=== PATIENT | male | born 1975 | race American Indian/Alaskan Native ===

== ENCOUNTER 2021-01-24 11:29 | Emergency (ER) | payer MEDICAID, OTHER ==
[2021-01-24] MEDS ORDERED: Iopamidol 612 MG/ML 100 ML Bottle IVPUSH ONE (11:51)
[2021-01-24] MEDS ORDERED: Sodium Chloride 0.9% 1,000 ML IV ONE (11:53)
--- NOTE | 2021-01-24 12:06 | EDM.PDOC ---
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 Denied loss of consciousnes. some discomfort yesterday but this am pain worse 7-8/10. Stiffness and discomfort to neck, right rib and flank pain, increased pain with deep breathig. pain to left griffith, lower leg, left knee and left elbow. Generalized Pain Score (Numeric/FACES): 8 - Related Data Allergies Allergy/AdvReac Type Severity Reaction Status Date / Time No Known Allergies Allergy Verified 01/24/21 11:39 Home Meds: Home Meds . [Unable to Verify Home Med List] 01/24/21 [History] Past Medical History HEENT History: Reports: None Cardiovascular History: Reports: High Cholesterol, Hypertension Respiratory History: Reports: None Genitourinary History: Reports: None Musculoskeletal History: Reports: Other (See Below) Other Musculoskeletal History: fractured left thumb Neurological History: Reports: None Psychiatric History: Reports: None Endocrine/Metabolic History: Reports: Hypothyroidism Hematologic History: Reports: None Immunologic History: Reports: None Oncologic (Cancer) History: Reports: None Dermatologic History: Reports: None - Infectious Disease History Infectious Disease History: Reports: None - Past Surgical History Head Surgeries/Procedures: Reports: None GI Surgical History: Reports: Hernia, Inguinal Social & Family History - Family History Family Medical History: No Pertinent Family History - Tobacco Use Tobacco Use Status *Q: Current Every Day Tobacco User Years of Tobacco use: 27 Packs/Tins Daily: 1 - Caffeine Use Caffeine Use: Reports: Coffee - Alcohol Use Days Per Week of Alcohol Use: 1 Number of Drinks Per Day: 36 Total Drinks Per Week: 36 - Recreational Drug Use Recreational Drug Use: No ED ROS GENERAL - Review of Systems Review Of Systems: Comprehensive ROS is negative, except as noted in HPI. ED EXAM, GENERAL - Physical Exam Exam: See Below Exam Limited By: No Limitations General Appearance: Alert, Mild Distress Eye Exam: Bilateral Eye: EOMI, PERRL Ears: Normal External Exam Nose: Normal Inspection Throat/Mouth: Normal Inspection, Normal Voice Head: Atraumatic, Normocephalic Neck: Tender Lateral, Tender Midline (mild) Respiratory/Chest: No Respiratory Distress, Lungs Clear, Normal Breath Sounds, Decreased Breath Sounds, Crackles, Rales, Wheezing (right lower with expiration, improves with deep breathing), Other (right lower lateral chest tender with palpation). No: Pleural Rub Cardiovascular: Normal Peripheral Pulses, Regular Rate, Rhythm GI/Abdominal: Normal Bowel Sounds, Soft Back Exam: Paraspinal Tenderness (right lower thoracic.) Course - Vital Signs Last Recorded V/S: Last Vital Signs Temp 98.1 F 01/24/21 11:38 Pulse 87 01/24/21 11:38 Resp 18 01/24/21 11:38 BP 153/95 H 01/24/21 11:38 Pulse Ox 96 01/24/21 11:38 - Orders/Labs/Meds Orders: Active Orders 24 hr Category Date Time Status UA RFX MARCIE AND CULT IF INDIC [URIN] Stat Lab 01/24/21 11:42 Ordered Labs: Laboratory Tests 01/24/21 01/24/21 Range/Units 11:50 11:50 WBC 6.5 (5.0-10.0) 10^3/uL RBC 4.96 (4.6-6.2) 10^6/uL Hgb 15.3 (14.0-18.0) g/dL Hct 46.0 (40.0-54.0) % MCV 92.7 (80-100) fL MCH 30.8 (27.0-34.0) pg MCHC 33.3 (33.0-35.0) g/dL Plt Count 260 (150-450) 10^3/uL Neut % (Auto) 59.8 (42.2-75.2) % Lymph % (Auto) 33.5 (20.5-50.1) % Bryan % (Auto) 5.9 (2-8) % Eos % (Auto) 0.6 L (1.0-3.0) % Baso % (Auto) 0.2 (0.0-1.0) % Sodium 141 (136-145) mmol/L Potassium 4.1 (3.5-5.1) mmol/L Chloride 106 (98-107) mmol/L Carbon Dioxide 28 (21-32) mmol/L Anion Gap 11.1 (7-13) mEq/L BUN 10 (7-18) mg/dL Creatinine 1.12 (0.70-1.30) mg/dL Est Cr Clr Drug Dosing 80.58 mL/min Estimated GFR (MDRD) > 60 BUN/Creatinine Ratio 8.9 (No establ ref range) Glucose 103 H (70-99) mg/dL Calcium 7.9 L (8.5-10.1) mg/dL Total Bilirubin 0.5 (0.2-1.0) mg/dL AST 21 (15-37) U/L ALT 32 (16-63) U/L Alkaline Phosphatase 87 (46-116) U/L Total Protein 7.5 (6.4-8.2) g/dL Albumin 3.9 (3.4-5.0) g/dL Globulin 3.6 Albumin/Globulin Ratio 1.1 Meds: Medications Discontinued Medications Generic Name Dose Route Start Last Admin Trade Name Freq PRN Reason Stop Dose Admin Sodium Chloride 1,000 mls @ 999 mls/hr 01/24/21 11:53 01/24/21 12:05 Normal Saline IV 01/24/21 12:53 999 mls/hr .BOLUS ONE Administration Ibuprofen 600 mg 01/24/21 13:21 Ibuprofen 600 Mg Tab PO 01/24/21 13:22 ONETIME ONE Iopamidol 100 ml 01/24/21 11:51 01/24/21 12:15 Iopamidol 612 Mg/Ml 100 Ml Bottle IVPUSH 01/24/21 11:52 100 ml ONETIME ONE Administration - Re-Assessments/Exams Free Text/Narrative Re-Assessment/Exam: 01/24/21 13:31 Findings discussed with patient. RT here for incentive spirometer. Departure - Departure Time of Disposition: 13:23 Disposition: Home, Self-Care 01 Condition: Good Clinical Impression: Muscle strain, Abrasion, multiple sites Contusion of rib on right side Qualifiers: Encounter type: initial encounter Qualified Code(s): S20.211A - Contusion of right front wall of thorax, initial encounter Fall Qualifiers: Encounter type: initial encounter Qualified Code(s): W19.XXXA - Unspecified fall, initial encounter Knee pain, left Qualifiers: Chronicity: acute Qualified Code(s): M25.562 - Pain in left knee - Discharge Information *PRESCRIPTION DRUG MONITORING PROGRAM REVIEWED*: No *COPY OF PRESCRIPTION DRUG MONITORING REPORT IN PATIENT RICK: No Instructions: Muscle Strain, [id number], Joint Pain, [id number], Rib Contusion Forms: ED Department Discharge Additional Instructions: deep breathing exercises with incentive spirometer every 2 hours while awake cleanse wounds twice daily with soap and water over the counter antibiotic ointment twice daily to wounds until healed follow up if redness drainage from scrapes ibuprofen 600mg every 6 hours as needed for discomfort, may alternate with tylenol 650mg every 4-6 hours flexeril 10mg one every 8 hours as needed for muscle spasm clinic recheck nest week, follow up sooner fever chills or difficulty breathing Sepsis Event Note (ED) - Evaluation Sepsis Screening Result: No Definite Risk - Focused Exam Vital Signs: Vital Signs Temp Pulse Resp BP Pulse Ox 01/24/21 11:38 98.1 F 87 18 153/95 H 96 - My Orders Last 24 Hours: My Active Orders 01/24/21 11:42 UA RFX MARCIE AND CULT IF INDIC [URIN] Stat - Assessment/Plan Last 24 Hours: My Active Orders 01/24/21 11:42 UA RFX MARCIE AND CULT IF INDIC [URIN] Stat
[2021-01-24 12:13] LABS: ANION GAP 11.1 mEq/L (7-13); CHLORIDE,CL 106 mmol/L (98-107); SODIUM,NA 141 mmol/L (136-145)
--- NOTE | 2021-01-24 12:56 | CT ---
PROCEDURE INFORMATION: Exam: CT Cervical Spine Without Contrast Exam date and time: 01/24/2021 12:19 PM Age: 45 years old Clinical indication: Injury or trauma; Fall; Injury date: 01/23/2021; Additional info: Fell 7 feet from scafold, pain, bruising, pain to neck TECHNIQUE: Imaging protocol: Computed tomography images of the cervical spine without contrast. Radiation optimization: All CT scans at this facility use at least one of these dose optimization techniques: automated exposure control; mA and/or kV adjustment per patient size (includes targeted exams where dose is matched to clinical indication); or iterative reconstruction. COMPARISON: No relevant prior studies available. FINDINGS: Vertebrae: No acute fracture. Normal alignment. C2-C3: No significant disc protrusion. No severe spinal canal stenosis. No significant neural foraminal narrowing. C3-C4: No significant disc protrusion. No severe spinal canal stenosis. No significant neural foraminal narrowing. C4-C5: No significant disc protrusion. No severe spinal canal stenosis. No significant neural foraminal narrowing. C5-C6: No significant disc protrusion. No severe spinal canal stenosis. No significant neural foraminal narrowing. C6-C7: No significant disc protrusion. No severe spinal canal stenosis. No significant neural foraminal narrowing. C7-T1: No significant disc protrusion. No severe spinal canal stenosis. No significant neural foraminal narrowing. Soft tissues: Unremarkable. Lungs: Lung apices are normal. IMPRESSION: No acute fracture or subluxation within the cervical spine.
--- NOTE | 2021-01-24 12:59 | CT ---
PROCEDURE INFORMATION: Exam: CT Chest With Contrast; Diagnostic Exam date and time: 01/24/2021 12:19 PM Age: 45 years old Clinical indication: Injury or trauma; Fall; Injury date: 01/23/2021; Additional info: Fell 7 feet from scafold, pain, bruising, pain to right side lower ribs TECHNIQUE: Imaging protocol: Diagnostic computed tomography of the chest with contrast. Radiation optimization: All CT scans at this facility use at least one of these dose optimization techniques: automated exposure control; mA and/or kV adjustment per patient size (includes targeted exams where dose is matched to clinical indication); or iterative reconstruction. Contrast material: ISOVUE 300; Contrast volume: 100 ml; Contrast route: INTRAVENOUS (IV); COMPARISON: No relevant prior studies available. FINDINGS: Lungs: Minimal linear markings within the lingula likely atelectasis. No pulmonary contusion identified. There is no pulmonary edema. Pleural spaces: Unremarkable. No pneumothorax. No pleural effusion. Heart: Unremarkable. No cardiomegaly. No pericardial effusion. Aorta: Unremarkable. No aortic aneurysm. Lymph nodes: Unremarkable. No enlarged lymph nodes. Bones/joints: Unremarkable. No acute fracture. Soft tissues: Unremarkable. IMPRESSION: Minimal atelectasis in the right middle lobe. No acute intrathoracic injury identified. PROCEDURE INFORMATION: Exam: CT Abdomen And Pelvis With Contrast Exam date and time: 01/24/2021 12:19 PM Age: 45 years old Clinical indication: Injury or trauma; Fall; Injury date: 01/23/2021; Additional info: Fell 7 feet from scafold, pain, bruising, pain to right side lower ribs TECHNIQUE: Imaging protocol: Computed tomography of the abdomen and pelvis with contrast. Radiation optimization: All CT scans at this facility use at least one of these dose optimization techniques: automated exposure control; mA and/or kV adjustment per patient size (includes targeted exams where dose is matched to clinical indication); or iterative reconstruction. Contrast material: ISOVUE 300; Contrast volume: 100 ml; Contrast route: INTRAVENOUS (IV); COMPARISON: No relevant prior studies available. FINDINGS: Liver: Normal. No mass. Gallbladder and bile ducts: Normal. No calcified stones. No ductal dilation. Pancreas: Normal. No ductal dilation. Spleen: Normal. No splenomegaly. Adrenal glands: Normal. No mass. Kidneys and ureters: Normal. No hydronephrosis. Stomach and bowel: Unremarkable. No obstruction. No mucosal thickening. Appendix: No evidence of appendicitis. Intraperitoneal space: Unremarkable. No free air. No significant fluid collection. Vasculature: Unremarkable. No abdominal aortic aneurysm. Lymph nodes: Unremarkable. No enlarged lymph nodes. Urinary bladder: Unremarkable as visualized. Reproductive: Unremarkable as visualized. Bones/joints: Unremarkable. No acute fracture. Soft tissues: Unremarkable. IMPRESSION: No acute intra-abdominal or intrapelvic injury identified. No free fluid present.
--- NOTE | 2021-01-24 13:02 | CT ---
PROCEDURE INFORMATION: Exam: CT Thoracic Spine Without Contrast Exam date and time: 01/24/2021 12:19 PM Age: 45 years old Clinical indication: Injury or trauma; Fall; Blunt trauma (contusions or hematomas); Injury date: 01/23/2021; Additional info: Fell 7 feet from scafold, pain, bruising TECHNIQUE: Imaging protocol: Computed tomography images of the thoracic spine without contrast. Radiation optimization: All CT scans at this facility use at least one of these dose optimization techniques: automated exposure control; mA and/or kV adjustment per patient size (includes targeted exams where dose is matched to clinical indication); or iterative reconstruction. COMPARISON: No relevant prior studies available. FINDINGS: Vertebrae: Thoracic vertebral body height and alignment are well maintained. There is mild disc space narrowing throughout the thoracic spine with small osteophytes at T4-5 and T5-6. Facet joints remain in anatomic alignment. Mild facet degenerative changes are present. T1-T2: No significant disc protrusion. No severe spinal canal stenosis. No significant neural foraminal narrowing. T2-T3: No significant disc protrusion. No severe spinal canal stenosis. No significant neural foraminal narrowing. T3-T4: No significant disc protrusion. No severe spinal canal stenosis. No significant neural foraminal narrowing. T4-T5: No significant disc protrusion. No severe spinal canal stenosis. No significant neural foraminal narrowing. T5-T6: No significant disc protrusion. No severe spinal canal stenosis. No significant neural foraminal narrowing. T6-T7: No significant disc protrusion. No severe spinal canal stenosis. No significant neural foraminal narrowing. T7-T8: No significant disc protrusion. No severe spinal canal stenosis. No significant neural foraminal narrowing. T8-T9: No significant disc protrusion. No severe spinal canal stenosis. No significant neural foraminal narrowing. T9-T10: No significant disc protrusion. No severe spinal canal stenosis. No significant neural foraminal narrowing. T10-T11: No significant disc protrusion. No severe spinal canal stenosis. No significant neural foraminal narrowing. T11-T12: No significant disc protrusion. No severe spinal canal stenosis. No significant neural foraminal narrowing. T12-L1: No significant disc protrusion. No severe spinal canal stenosis. No significant neural foraminal narrowing. IMPRESSION: 1. Mild degenerative disc and degenerative joint disease. No acute fracture or subluxation within the thoracic spine.
--- NOTE | 2021-01-24 13:03 | CR ---
PROCEDURE INFORMATION: Exam: XR Left Elbow Exam date and time: 01/24/2021 12:35 PM Age: 45 years old Clinical indication: Injury or trauma; Fall; Wound; Elbow; Left; Injury date: 01/23/2021; Additional info: Fell 7 feet from scafold, pain, bruising TECHNIQUE: Imaging protocol: XR Left elbow. Views: 3 or more views. COMPARISON: No relevant prior studies available. FINDINGS: Bones/joints: Multiple views of the left elbow demonstrate mild degenerative changes are present within the joint spaces. No fracture or effusion identified. Bone mineral density is normal. Soft tissues: Normal. IMPRESSION: 1. Mild degenerative change. No acute osseous injury present.
--- NOTE | 2021-01-24 13:04 | CR ---
PROCEDURE INFORMATION: Exam: XR Left Knee Exam date and time: 01/24/2021 12:41 PM Age: 45 years old Clinical indication: Injury or trauma; Fall; Swelling (edema); Knee; Left; Injury date: 01/23/21; Additional info: Pain TECHNIQUE: Imaging protocol: XR Left knee. Views: 1 or 2 views. COMPARISON: No relevant prior studies available. FINDINGS: Bones/joints: Multiple views of the left knee demonstrate mild to moderate grade degenerative change with osteophyte formation arising from the tibial spines and femoral condyles near the intercondylar notch. Mild patellofemoral degenerative changes also present with patellar osteophytes. No fracture or effusion identified. Bone mineral density is normal. Soft tissues: Normal. IMPRESSION: [id number] grade degenerative osteoarthritis. No acute osseous abnormality is identified.
--- NOTE | 2021-01-24 13:05 | CR ---
PROCEDURE INFORMATION: Exam: XR Left Tibia and Fibula Exam date and time: 01/24/2021 12:42 PM Age: 45 years old Clinical indication: Injury or trauma; Fall; Wound; Foreign body involvement not specified; Injury date: 01/23/21; Injury details: Anterior scrape lower leg left; Additional info: Fell 7 feet from scafold, pain, bruising TECHNIQUE: Imaging protocol: XR Left tibia and fibula. Views: 2 views. COMPARISON: No relevant prior studies available. FINDINGS: Bones/joints: Multiple views of the left tibia and fibula demonstrate no evidence for fracture. Mild to moderate grade degenerative changes are noted within the knee joint with mild degenerative change within the ankle joint. Bone mineral density is normal. Soft tissues: Normal. IMPRESSION: No fracture or foreign body identified.
[2021-01-24] MEDS ORDERED: Ibuprofen 600 MG Tab PO ONE (13:21)
== END 2021-01-24 13:32 | disposition home or self-care (01) ==
LOC: DL.ED 11:29
DX: S16.1XXA Strain of muscle, fascia and tendon at neck level, initial encounter (principal); S29.012A Strain of muscle and tendon of back wall of thorax, initial encounter; S20.211A Contusion of right front wall of thorax, initial encounter; M25.562 Pain in left knee; I10 Essential (primary) hypertension; Z72.0 Tobacco use; W17.89XA Other fall from one level to another, initial encounter
CPT/HCPCS: 36415; 71260; 72125; 72128; 73080-LT; 73560-LT; 73590-LT; 74177; 80053; 85025; 94010; 99284; 99284-25; A9270-GY; J7030; Q9967

== ENCOUNTER 2021-11-10 11:29 | Emergency (ER) | payer BC, MEDICAID | END 2021-11-10 15:04 | disposition home or self-care (01) | LOC: DL.ED 11:29 | DX: S06.0X9A Concussion with loss of consciousness of unspecified duration, initial encounter (principal); M54.2 Cervicalgia; I10 Essential (primary) hypertension; Z72.0 Tobacco use; W00.0XXA Fall on same level due to ice and snow, initial encounter | CPT/HCPCS: 70450; 72125; 99284; 99284-25 ==

== ENCOUNTER 2022-01-07 21:11 | Emergency (ER) | payer MEDICAID ==
[2022-01-07] MEDS ORDERED: Lidocaine 2% Viscous Solution 15 ML UD PO ONE (21:12)
[2022-01-07] MEDS ORDERED: Clindamycin HCl 150 MG Cap PO ONE ×2 (21:12→21:53)
[2022-01-07] MEDS ORDERED: Clindamycin HCl 150 MG Cap ONE (22:08)
[2022-01-07] MEDS ORDERED: Lidocaine 2% Viscous Solution 15 ML UD ONE (22:08)
== END 2022-01-07 22:15 | disposition home or self-care (01) ==
LOC: DL.ED 21:11
DX: K04.7 Periapical abscess without sinus (principal); I10 Essential (primary) hypertension; Z72.0 Tobacco use
CPT/HCPCS: 99283; A9270-GY

== ENCOUNTER 2022-02-17 12:07 | Emergency (ER) | payer MEDICAID ==
[2022-02-17] MEDS ORDERED: Sodium Chloride 0.9% 1,000 ML IV ONE ×2 (12:37→13:28)
[2022-02-17 13:18] LABS: ANION GAP 13.9 mEq/L (7-13); CHLORIDE,CL 99 mmol/L (98-107); SODIUM,NA 136 mmol/L (136-145)
[2022-02-17 13:55] LABS: AMPHETAMINES,URINE NEGATIVE (NEGATIVE); BARBITURATES,URINE NEGATIVE (NEGATIVE); BENZODIAZEPINE,URINE NEGATIVE (NEGATIVE); MDMA (ECSTASY), URINE NEGATIVE (NEGATIVE); METHADONE,URINE NEGATIVE (NEGATIVE); METHAMPHETAMINES,URINE NEGATIVE (NEGATIVE); OPIATES,URINE NEGATIVE (NEGATIVE); OXYCODONE,URINE NEGATIVE (NEGATIVE); PHENCYCLIDINE,URINE NEGATIVE (NEGATIVE); TCA,URINE POSITIVE (NEGATIVE)
== END 2022-02-17 15:17 | disposition home or self-care (01) ==
LOC: DL.ED 12:07
DX: N17.9 Acute kidney failure, unspecified (principal); E86.0 Dehydration; R25.2 Cramp and spasm; R94.6 Abnormal results of thyroid function studies; E78.00 Pure hypercholesterolemia, unspecified; E03.9 Hypothyroidism, unspecified; I10 Essential (primary) hypertension; Z79.899 Other long term (current) drug therapy
CPT/HCPCS: 36415; 80053; 80305-QW; 80307; 81001; 82550; 83605; 83735; 84100; 84439; 84443; 85025; 86140; 96360; 96361; 99284; 99284-25; J7030

== ENCOUNTER 2023-02-03 06:50 | Day surgery (SDC) | payer MEDICAID ==
[~2023-02-03 06:50] MED LIST: Dextrose 5%-0.45% NaCl 1,000 ML IV SCH; Midazolam 1 MG/ML 2 ML SDV ONE; Sodium Chloride 0.9% 10 ML Syringe FLUSH PRN; Sodium Chloride 0.9% 10 ML Syringe FLUSH SCH; fentaNYL 100 MCG/2 ML SDV ONE
[2023-02-03] MEDS ORDERED: fentaNYL 100 MCG/2 ML SDV IV ONE ×5 (06:51→08:28)
[2023-02-03] MEDS ORDERED: Midazolam 1 MG/ML 2 ML SDV IV ONE ×7 (06:51→08:25)
== END 2023-02-03 10:15 | disposition home or self-care (01) ==
LOC: DL.ENDO 06:50
PROVIDERS: ATTEND Internal Medicine Gastroenterology
DX: K57.30 Diverticulosis of large intestine without perforation or abscess without bleeding (principal); K62.5 Hemorrhage of anus and rectum; F12.90 Cannabis use, unspecified, uncomplicated; E66.09 Other obesity due to excess calories; E89.0 Postprocedural hypothyroidism; Z68.26 Body mass index [BMI] 26.0-26.9, adult; R94.5 Abnormal results of liver function studies; Z87.891 Personal history of nicotine dependence
CPT/HCPCS: 45378; J2250; J3010; J7042

== ENCOUNTER 2025-01-08 19:47 | Emergency (ER) | payer BC, MEDICAID, OTHER ==
[2025-01-08] MEDS: Ketorolac 30 MG/ML SDV IM ONE (20:10)
== END 2025-01-08 20:47 | disposition home or self-care (01) ==
LOC: DL.ED 19:47
DX: S29.011A Strain of muscle and tendon of front wall of thorax, initial encounter (principal); I10 Essential (primary) hypertension; E66.9 Obesity, unspecified; E03.9 Hypothyroidism, unspecified; Z79.890 Hormone replacement therapy; X50.0XXA Overexertion from strenuous movement or load, initial encounter
CPT/HCPCS: 71045; 93005; 96372; 99285; J1885; 93010; 99283